=== PATIENT | female | born 1995 | race Caucasian/White ===

== ENCOUNTER 2021-05-07 14:25 | Observation (INO) | payer MEDICAID ==
[~2021-05-07] VITALS: Ht 152.4 cm; Wt 67.1 kg
[2021-05-07] MEDS ORDERED: TERBUTALINE SULFATE 1 MG/ML VIAL SUBCUT PRN (15:45)
[2021-05-07] MEDS ORDERED: TERBUTALINE SULFATE 1 MG/ML VIAL ONE (15:48)
== END 2021-05-07 16:25 | disposition home or self-care (01) ==
LOC: SPU 14:25
PROVIDERS: ADMIT Obstetrics & Gynecology; ATTEND Obstetrics & Gynecology
DX: O62.9 Abnormality of forces of labor, unspecified (principal); Z3A.35 35 weeks gestation of pregnancy
CPT/HCPCS: 81002; 96372; G0378; J3105